=== PATIENT | male | born 1990 | race Caucasian/White ===

== ENCOUNTER 2020-02-09 16:54 | Emergency (ER) | payer SELFPAY ==
[~2020-02-09] VITALS: Ht 188 cm; Wt 118.0 kg
[~2020-02-09 16:54] MED LIST: CPR500T PO; NAPR-243 PO; TRM50T PO
[2020-02-09] MEDS ORDERED: LIDOCAINE 1% INJ 20 ML 20 ML VIAL INJ ONE (17:00)
--- NOTE | 2020-02-09 17:12 | ED Upper Extremity ---
General Chief Complaint: Laceration Stated Complaint: R THUMB LAC Nursing Triage Note: c/o laceration to R thumb Nursing Sepsis Screen: No Definite Risk Source: patient Exam Limitations: no limitations History of Present Illness Date Seen by Provider: Feb 09, 2020 Time Seen by Provider: 17:10 Initial Comments To ER from [facility] with reports of a table saw laceration to the pad and very tip of the right thumb. Tetanus is up-to-date. [facility] staff was able to visualize something white they stated, unclear if this was t endon or bone. Onset: just prior to arrival Severity: moderate Pain/Injury Location: right thumb Modifying Factors: Worse With Movement Allergies and Home Medications Allergies Coded Allergies: No Known Drug Allergies (Unverified , 02/09/20) Home Medications Ciprofloxacin 500 Mg Tablet, 1 TAB PO BID FOR INFECTION Prescribed by: LUIS FELIPE CABRERA on 04/02/09428 Naproxen 500 Mg Tablet, 1 EACH PO TID PRN FOR PAIN Prescribed by: LUIS FELIPE CABRERA on 04/02/09428 Tramadol Hcl 50 Mg Tablet, 1 TAB PO QID FOR PAIN Prescribed by: LUIS FELIPE CABRERA on 04/02/09428 Patient Home Medication List Home Medication List Reviewed: Yes Review of Systems Constitutional: see HPI EENTM: see HPI Respiratory: no symptoms reported Cardiovascular: no symptoms reported Genitourinary: no symptoms reported Musculoskeletal: no symptoms reported Skin: see HPI Psychiatric/Neurological: No Symptoms Reported Past Hnumhqp-Adwmdk-Pzhywb Hx Patient Social History Alcohol Use: Denies Use Recreational Drug Use: Yes Drug of Choice: thc Smoking Status: Current Everyday Smoker Type Used: Cigarettes Recent Foreign Travel: No Contact w/Someone Who Travel: No Recent Infectious Disease Expo: No Past Medical History Surgeries: Yes Gallbladder Respiratory: No Cardiac: No Neurological: No Genitourinary: No Gastrointestinal: No Musculoskeletal: No Endocrine: No HEENT: No Cancer: No Psychosocial: No Integumentary: No Blood Disorders: No Physical Exam Vital Signs Vital Signs - First Documented 02/09/20 16:59 Temp 36.4 Pulse 70 Resp 18 B/P (MAP) 154/110 (125) Pulse Ox 98 O2 Delivery Room Air Capillary Refill : Less Than 3 Seconds Height, Weight, BMI Height: '" Weight: lbs. oz. kg; 33.00 BMI Method: General Appearance: WD/WN, no apparent distress Shoulder: normal inspection, non-tender Elbow/Forearm: normal inspection, non-tender Hand: Right (there is a 0.5 cm laceration to the center of the pad of the right thumb without active bleeding. There is also a laceration/tissue avulsion injury to the very tip of the thumb. No apparent nail bed laceration. The very tip is certainly not a suturable laceration. We did a digital block using 5 mL of 2% lidocaine without epinephrine. Once that takes effect we'll have a better exam of the thumb.) Neurologic/Tendon: normal sensation, normal tendon functions Neurologic/Psychiatric: alert, normal mood/affect, oriented x 3 Skin: normal color, warm/dry Progress/Results/Core Measures Results/Orders My Orders Orders - ROBERTO CARLOS PLUMMER APRN Lidocaine 1% Inj 20 Ml (Xylocaine 1% Inj (02/09/20 17:00) Hand, Right, 3 Views (02/09/20 17:09) Amoxicillin/Clavulanate Tablet (Augmenti (02/09/20 17:15) Rx-Hydrocodone/Apap 5-325 Mg (Rx-Vicodin (02/09/20 17:15) Dipht,Pertuss(Acell),Tet Adult (Boostrix (02/09/20 17:30) Medications Given in ED Current Medications Medications Dose Ordered Sig/Ruslan Route Start Time Stop Time Status Last Admin Dose Admin Acetaminophen/ Hydrocodone Bitart 1 ea Q4H PRN PO 02/09/20 17:15 02/09/20 17:21 1 EA Diphtheria/ Tetanus/Acell Pertussis 0.5 ml ONCE ONCE IM 02/09/20 17:30 02/09/20 17:31 DC 02/09/20 17:30 0.5 ML Lidocaine HCl 20 ml ONCE ONCE INJ 02/09/20 17:00 02/09/20 17:01 DC 02/09/20 17:16 20 ML Vital Signs/I&O 02/09/20 16:59 Temp 36.4 Pulse 70 Resp 18 B/P (MAP) 154/110 (125) Pulse Ox 98 O2 Delivery Room Air Blood Pressure Mean: 125 Departure Communication (Admissions) 1733-there was no visualized exposed tendon or bone. Wound was irrigated with chlorhexidine/saline solution, wound was then covered with Xeroform and then tube gauze. There was really nothing to suture here. Impression Primary Impression: Laceration of thumb Disposition: HOME, SELF-CARE Condition: Stable Departure-Patient Inst. Decision time for Depature: 17:35 Referrals: [facility] (PCP/Family) Primary Care Physician Patient Instructions: Wound Care Add. Discharge Instructions: 1. Antibiotics as directed 2. Tylenol and Motrin for pain control. If this is insufficient you can use the hydrocodone for pain. Return to ER for any worsening or signs of infection such as redness or swelling. Unfortunately this will take couple of weeks to heal. Leave this particular dressing in place until Tuesday morning. At which point you can remove it, wash gently with soap and water and pat dry then use part of one of the oil emulsion dressings, then gauze, then the brown self stick material. Ultimately I would keep this covered for about 1-2 weeks. All discharge instructions reviewed with patient and/or family. Voiced understanding. Scripts Amoxicillin/Potassium Clav (Augmentin 875-125 Tablet) 1 Each Tablet 1 EACH PO BID, #8 TAB 0 Refills Prov: ROBERTO CARLOS PLUMMER APRN 02/09/20 ROBERTO CARLOS PLUMMER APRN Feb 09, 2020 17:12
[2020-02-09] MEDS ORDERED: AUGMENTIN 875 MG TAB (AMOXICILLIN/CLAVULANATE) PO SCH (17:15)
[2020-02-09] MEDS ORDERED: RX-HYDROCODONE/APAP 5/325 MG #4 TAB PK PO PRN (17:15)
[2020-02-09] MEDS ORDERED: TETANUS,DIPTH,PERTUSS P/F (BOOSTRIX) 0.5 ML VIAL IM ONE (17:30)
[2020-02-09] MEDS ORDERED: AMOX-358 PO (17:37)
[2020-02-09 17:39] VITALS: BP 148/98
--- NOTE | 2020-02-09 18:15 | Diagnostic Imaging Report ---
CLINICAL INDICATION: Patient states tablesaw cut thumb. Laceration of distal part of 1st digit on palmar side of finger. EXAM: X-ray of the right hand, 3 views and lateral view of the 1st digit. COMPARISON: None. FINDINGS: There is no acute fracture or dislocation. There is soft tissue avulsion injury involving the plantar aspect of the 1st distal phalangeal region. There is no radiodense foreign object. There is no gross bony injury in the region, as visualized. The remainder of the right hand and wrist bony structures are unremarkable. IMPRESSION: 1: There is no acute fracture or dislocation. 2: There is soft tissue avulsion injury involving the plantar aspect of the 1st distal phalangeal region. Dictated by: Dictated on workstation # [id number]
== END 2020-02-09 17:39 | disposition home or self-care (01) ==
LOC: EDUNIT# 16:54 → ER 16:56
DX: S61.011A Laceration without foreign body of right thumb without damage to nail, initial encounter (principal); F17.210 Nicotine dependence, cigarettes, uncomplicated; Z23 Encounter for immunization; W31.2XXA Contact with powered woodworking and forming machines, initial encounter
CPT/HCPCS: 73130; 90715